=== PATIENT | female | born 1980 | race Caucasian/White ===

== ENCOUNTER → 2019-01-03 | Outpatient (CLI) | payer OTHER ==
--- NOTE | 2019-01-03 16:20 | Diagnostic Imaging Report ---
Exam: Left heel 2 views Clinical history: Left heel pain Findings: There is no evidence of acute fracture or malalignment. Calcaneal osteophytes are noted in the plantar surface and the posterior calcaneus. This may be associated with plantar fasciitis or Achilles tendinitis. Impression: 1. No radiographic evidence of acute osseous injury. Signed by: Dr. Emiliano Osborn MD on 01/03/2019 4:15 PM
== END ==
LOC: RAD 15:03
PROVIDERS: ATTEND Family Medicine
DX: M79.672 Pain in left foot (principal)

== ENCOUNTER 2022-03-19 10:00 | Emergency (ER) | payer BC, OTHER ==
[~2022-03-19] VITALS: Ht 154.9 cm; Wt 99.8 kg
== END 2022-03-19 13:41 | disposition home or self-care (01) ==
LOC: ER 10:05
DX: R53.83 Other fatigue (principal); B34.9 Viral infection, unspecified; I10 Essential (primary) hypertension; K21.9 Gastro-esophageal reflux disease without esophagitis; Z20.822 Contact with and (suspected) exposure to COVID-19
CPT/HCPCS: 0223U; 36415; 87400; 99283

== ENCOUNTER 2023-03-05 08:46 | Emergency (ER) | payer BC ==
[~2023-03-05] VITALS: Ht 154.9 cm; Wt 99.8 kg
[2023-03-05] MEDS ORDERED: ULTRAM 50MG50 MG PO (10:20)
[2023-03-05] MEDS ORDERED: NAPROXEN250 MG PO (10:23)
[2023-03-05 10:36] VITALS: BP 130/70; PULSE 75; RESP 20; O2SAT 100
== END 2023-03-05 10:37 | disposition home or self-care (01) ==
LOC: ER 08:49
DX: R10.2 Pelvic and perineal pain (principal); N83.209 Unspecified ovarian cyst, unspecified side; I10 Essential (primary) hypertension; K21.9 Gastro-esophageal reflux disease without esophagitis
CPT/HCPCS: 36415; 84702; 99284